=== PATIENT | male | born 2000 | race Caucasian/White ===

== ENCOUNTER 2021-01-02 18:23 | Emergency (ER) | payer OTHER ==
[~2021-01-02] VITALS: Ht 177.8 cm; Wt 88.5 kg
[2021-01-02 18:15] VITALS: BP 140/93
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
--- NOTE | 2021-01-02 18:39 | PCM.EKG ---
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
[2021-01-02 20:47] VITALS: BP 149/80
--- NOTE | 2021-01-02 21:35 | NUR ---
DISCHARGED [facility] ARRIVED TO TRANSPORT PT TO [place] AT PT'S REQUEST.
== END 2021-01-02 21:35 | disposition home or self-care (01) ==
LOC: EDBD 18:23 → ER 18:23
DX: S16.1XXA Strain of muscle, fascia and tendon at neck level, initial encounter (principal); V43.62XA Car passenger injured in collision with other type car in traffic accident, initial encounter; Y93.89 Activity, other specified; Y92.488 Other paved roadways as the place of occurrence of the external cause; Y99.8 Other external cause status
CPT/HCPCS: 70450; 70486; 71260; 72125; 73130; 93005; 99285; Q9965